=== PATIENT | female | born 1970 | race Caucasian/White ===

== ENCOUNTER → 2020-03-20 | Day surgery (SDC) | payer OTHER ==
[~2020-03-20] MED LIST: HUMALOG100 UNIT/1 SUBQ; LISINOPRIL-HCT1 EAC1 PO; NORCO 5-325 TA1 EAC2 PO; PAROXETINE HCL20 MG PO
--- NOTE | ~2020-03-20 | OP ---
[facility] [place] [address] OPERATIVE REPORT Name: TENNILLE HERNÁNDEZ Room: [facility]#: [id number] Admission: 03/20/20 Attend Phys: Deven Patel, Discharge: Date of : 70 Report #: [id number] THIS REPORT FOR: //name// cc: Lazaro Barr Marvin E. DO ~ THIS REPORT FOR: //name// CC: Deven Barr DATE OF SERVICE: 03/20/2020 Lito Zamudio DO dictating for Dr. Deven Patel. PREOPERATIVE DIAGNOSIS: Right thumb trigger thumb. POSTOPERATIVE DIAGNOSIS: Right thumb trigger thumb. SURGEON: Deven Patel DO ASSISTANTS: 1. Lito Zamudio DO 2. Lito Batista DO OPERATION PERFORMED: Right trigger thumb release. ANESTHESIA: Monitored anesthesia care with median nerve block. ESTIMATED BLOOD LOSS: 5 mL. SPECIMENS: None. COMPLICATIONS: None. ANTIBIOTICS: 2 grams of Ancef given IV 30 minutes prior to incision. DRAINS: None. CONDITION: Stable to PACU. DISPOSITION: PACU to home. INDICATIONS: The patient is a pleasant 49-year-old female who has ongoing right thumb pain and triggering for greater than 3 months, refractory to conservative measures of rest, ice, nonsteroidal anti-inflammatories as well as bracing. She was therefore recommended to undergo right thumb trigger thumb release. [address] [address] OPERATIVE REPORT Name: TENNILLE HERNÁNDEZ Room: [facility]#: [id number] Admission: 03/20/20 Attend Phys: Deven Patel, Discharge: Date of : 70 Report #: [id number] Therefore, the risks, benefits, treatment options, alternatives, indications were discussed with the patient. Risks included but not limited to damage to surrounding neurovascular structures, continued pain, continued bleeding, need for repeat surgery, wound dehiscence, infection, DVT, PE, as well as inherent complications of anesthesia. The patient assumed the risks and wished to proceed with surgery. DESCRIPTION OF PROCEDURE: The patient was seen in the preoperative holding area where consent was obtained and signed and the right upper extremity was marked and initialed. She was transferred back to the operative suite and placed supine on the operating room table and given the benefit of monitored anesthesia care, all bony prominences were padded and a well-padded tourniquet was applied to right upper arm. The right arm was then placed on the hand table and that was oriented to 90 degrees in surgical field. A timeout was then had indicating appropriate patient, procedure to be performed, operative site, operative surgeon, preoperative antibiotics and all in attendance were in agreement. The right hand was then sterilely prepped with ChloraPrep and then median nerve block was then administered just ulnar to the palmaris tendon as well as field block to the radial and ulnar digital arteries just proximal to the planned incision on the right thumb. Approximately 10 mL total of the anesthetic was used at that time. Next, the right upper extremity was then sterilely prepped utilizing a ChloraPrep x 2 and then draped free in normal sterile fashion. Next, an incision was then made over the volar aspect of the thumb following the most proximal crease approximately 1 cm in length, utilizing a 15 blade scalpel through skin and subcutaneous tissues and then tenotomy scissors were then used to spread the subcutaneous fat tissue with identification of the radial and ulnar digital nerves, which were then identified and protected throughout the entirety of the case. Dissection was then further carried down tenotomy scissors until the A1 ninfa was then exposed over the flexor tendon. Once the A1 ninfa was then exposed, it was returned to be significantly thickened, fibrotic as well as edema beneath the A1 ninfa and overlying the tendon. The A1 ninfa was incised longitudinally with the tenotomy scissors until fully released. The tendon was then exposed, demonstrating no adhesions. Next, wound was then thoroughly irrigated and skin was then closed utilizing 5-0 nylon in simple interrupted fashion followed by sterile dressing of Xeroform, 4 x 4's, Kerlix and Norbert bandage. Sponge and needle counts were correct x [address] Patel was present for all critical aspects of the case. The patient was then transported back to PACU in normal stable condition. By: [id number] Vern Patel DO /nt
[2020-03-20 07:56] LABS: CALCIUM 8.7 mg/dL (8.5-10.1); CREATININE 0.9 mg/dL (0.6-1.3); POTASSIUM 4.6 mmol/L (3.5-5.1)
--- NOTE | 2020-03-20 08:49 | EKG ---
[place] [address] ELECTROCARDIOGRAM REPORT Name: TENNILLE HERNÁNDEZ Room: [facility]#: [id number] Admission: 03/20/20 Attend Phys: Deven Daly Discharge: Date of : 70 Date of Service: 03/20/20 0751 Report #: [id number] THIS REPORT FOR: //name// [facility] Test Date: 2020-03-20 Test Time: 07:51:58 Pat Name: TENNILLE HERNÁNDEZ Department: Room: Gender: F [employer] Teacher: : 1970 Requested By: Deven Patel Order Number: [id number] Adilia MD: Herbie Pugh Measurements Intervals Keller Rate: 76 P: 33 FL: 165 QRS: 17 QRSD: 86 T: 31 QT: 394 QTc: 444 Interpretive Statements Sinus rhythm No previous ECG available for comparison Electronically Signed On 03-20-2020 8:49:33 CDT by Herbie Pugh [email or web address] <ELECTRONICALLY SIGNED> By: Herbie Pugh MD, [facility] 03/20/20 0849 751 0 Herbie Pugh MD, FACC /EPI
== END | disposition home or self-care (01) ==
LOC: M.SUR 07:09
PROVIDERS: ATTEND Orthopaedic Surgery
DX: M65.311 Trigger thumb, right thumb (principal); I10 Essential (primary) hypertension; E11.9 Type 2 diabetes mellitus without complications; F41.9 Anxiety disorder, unspecified; F32.9 Major depressive disorder, single episode, unspecified; Z79.899 Other long term (current) drug therapy; Z90.710 Acquired absence of both cervix and uterus; Z98.890 Other specified postprocedural states